=== PATIENT | male | born 1940 | race Caucasian/White ===

== ENCOUNTER 2016-12-26 14:51 | Inpatient (IN) | payer MEDICARE, OTHER ==
[~2016-12-26] VITALS: Ht 180.3 cm; Wt 68.0 kg
[2016-12-26 20:06] LABS: HEMOGLOBIN 19.1 gm/dl (14.0-17.5); RED BLOOD COUNT 6.13 M/UL (4.20-5.50); WHITE BLOOD COUNT 8.6 K/UL (4.5-11.0)
[2016-12-27] MEDS ORDERED: BYDUREON2 MG SQ (00:08)
[2016-12-27] MEDS ORDERED: NORVASC 5 MG TAB5 MG PO (00:09)
[2016-12-27] MEDS ORDERED: LANTUS100 UNIT/1 SQ (00:09)
[2016-12-27] MEDS ORDERED: METOPROLOL TART50 MG PO (00:10)
[2016-12-27] MEDS ORDERED: LORTAB 7.5-3251 EACH PO (00:10)
[2016-12-27] MEDS ORDERED: NITROGLYCERIN2.5 M1 PO (00:11)
[2016-12-27] MEDS ORDERED: LISINOPRIL20 MG PO (00:12)
[2016-12-27] MEDS ORDERED: ELIQUIS5 MG PO (00:12)
[2016-12-27 06:13] LABS: HEMOGLOBIN 17.8 gm/dl (14.0-17.5); RED BLOOD COUNT 5.77 M/UL (4.20-5.50); WHITE BLOOD COUNT 6.9 K/UL (4.5-11.0)
[2016-12-28 04:09] LABS: HEMOGLOBIN 17.1 gm/dl (14.0-17.5); RED BLOOD COUNT 5.61 M/UL (4.20-5.50); WHITE BLOOD COUNT 6.7 K/UL (4.5-11.0)
[2016-12-28] MEDS ORDERED: RANEXA500 MG PO (10:10)
[2016-12-28] MEDS ORDERED: TYLENOL 325MG325 MG PO (10:10)
[2017-05-13] MEDS ORDERED: LANTUS100 UNIT/1 SQ (20:34)
[2017-05-14] MEDS ORDERED: NITROGLYCERIN2.5 MG PO (12:34)
[2017-05-14] MEDS ORDERED: LANTUS100 UNIT/1 SQ (12:35)
[2017-05-22] MEDS ORDERED: LISINOPRIL20 MG PO (12:27)
== END 2016-12-28 09:58 | disposition home or self-care (01) | DRG 303 ==
LOC: ER1 14:51 → CCU 21:34 → ZEROF 21:34 → CCU 12-27 00:11 → PROG CARE 12-27 18:27
PROVIDERS: Emergency Medicine; Family Medicine; ADMIT Family Medicine
DX: I25.119 Atherosclerotic heart disease of native coronary artery with unspecified angina pectoris (principal); I13.0 Hypertensive heart and chronic kidney disease with heart failure and stage 1 through stage 4 chronic kidney disease, or unspecified chronic kidney disease; I50.22 Chronic systolic (congestive) heart failure; E86.0 Dehydration; E87.5 Hyperkalemia; E11.22 Type 2 diabetes mellitus with diabetic chronic kidney disease; N18.3 Chronic kidney disease, stage 3 (moderate); I25.5 Ischemic cardiomyopathy; I48.2 Chronic atrial fibrillation; E11.40 Type 2 diabetes mellitus with diabetic neuropathy, unspecified; J44.9 Chronic obstructive pulmonary disease, unspecified; E78.5 Hyperlipidemia, unspecified; R70.0 Elevated erythrocyte sedimentation rate; C44.602 Unspecified malignant neoplasm of skin of right upper limb, including shoulder; M51.36 Other intervertebral disc degeneration, lumbar region; L30.9 Dermatitis, unspecified; M19.90 Unspecified osteoarthritis, unspecified site; F32.9 Major depressive disorder, single episode, unspecified; F41.9 Anxiety disorder, unspecified; Z95.5 Presence of coronary angioplasty implant and graft; Z95.810 Presence of automatic (implantable) cardiac defibrillator; Z87.891 Personal history of nicotine dependence; Z72.3 Lack of physical exercise; Z79.01 Long term (current) use of anticoagulants; Z79.4 Long term (current) use of insulin; Z79.891 Long term (current) use of opiate analgesic; Z79.899 Other long term (current) drug therapy; Z88.8 Allergy status to other drugs, medicaments and biological substances; Z83.3 Family history of diabetes mellitus; Z82.49 Family history of ischemic heart disease and other diseases of the circulatory system
CPT/HCPCS: 36415; 70450; 71010; 80048; 80053; 80061; 82550; 82553; 82962; 83874; 84132; 84484; 85025; 85027; 85610; 85730; 93005; 96372; 96374; 96375; 97116; 99285; J0610; J1650; J1815; J1940; J7030

== ENCOUNTER 2016-12-28 17:12 | Inpatient (IN) | payer MEDICARE, OTHER ==
[~2016-12-28] VITALS: Ht 180.3 cm; Wt 80.5 kg
[~2016-12-28 17:12] MED LIST: BYDUREON2 MG SQ; ELIQUIS5 MG PO; LANTUS100 UNIT/1 SQ; LISINOPRIL20 MG PO; LORTAB 7.5-3251 EACH PO; METOPROLOL TART50 MG PO; NITROGLYCERIN2.5 M1 PO; NORVASC 5 MG TAB5 MG PO; RANEXA500 MG PO; TYLENOL 325MG325 MG PO
[2016-12-28 17:35] LABS: RED BLOOD COUNT 5.88 M/UL (4.20-5.50); WHITE BLOOD COUNT 7.4 K/UL (4.5-11.0)
[2016-12-29 07:28] LABS: HEMOGLOBIN 16.5 gm/dl (14.0-17.5); RED BLOOD COUNT 5.48 M/UL (4.20-5.50); WHITE BLOOD COUNT 6.8 K/UL (4.5-11.0)
[2016-12-30 04:34] LABS: HEMOGLOBIN 16.6 gm/dl (14.0-17.5); RED BLOOD COUNT 5.44 M/UL (4.20-5.50); WHITE BLOOD COUNT 7.6 K/UL (4.5-11.0)
[2016-12-31 04:25] LABS: HEMOGLOBIN 16.6 gm/dl (14.0-17.5); RED BLOOD COUNT 5.43 M/UL (4.20-5.50); WHITE BLOOD COUNT 7.1 K/UL (4.5-11.0)
[2017-01-01 04:17] LABS: HEMOGLOBIN 16.6 gm/dl (14.0-17.5); RED BLOOD COUNT 5.46 M/UL (4.20-5.50)
[2017-01-01 04:21] LABS: WHITE BLOOD COUNT 15.8 K/UL (4.5-11.0)
[2017-01-02 03:40] LABS: HEMOGLOBIN 17.9 gm/dl (14.0-17.5); RED BLOOD COUNT 5.83 M/UL (4.20-5.50); WHITE BLOOD COUNT 12.2 K/UL (4.5-11.0)
[2017-01-03 04:18] LABS: HEMOGLOBIN 18.1 gm/dl (14.0-17.5); RED BLOOD COUNT 5.89 M/UL (4.20-5.50)
[2017-05-13] MEDS ORDERED: LANTUS100 UNIT/1 SQ (20:34)
[2017-05-14] MEDS ORDERED: NITROGLYCERIN2.5 MG PO (12:34)
[2017-05-14] MEDS ORDERED: LANTUS100 UNIT/1 SQ (12:35)
[2017-05-22] MEDS ORDERED: LISINOPRIL20 MG PO (12:27)
== END 2017-01-04 13:01 | DRG 291 ==
LOC: ER1 17:12 → PROG CARE 12-29 00:30 → ER1 12-29 20:45 → MED SURG 4 01-03 17:33
PROVIDERS: Emergency Medicine; Family Medicine; ADMIT Internal Medicine
DX: I13.0 Hypertensive heart and chronic kidney disease with heart failure and stage 1 through stage 4 chronic kidney disease, or unspecified chronic kidney disease (principal); I50.23 Acute on chronic systolic (congestive) heart failure; J18.9 Pneumonia, unspecified organism; J96.21 Acute and chronic respiratory failure with hypoxia; N17.9 Acute kidney failure, unspecified; J44.0 Chronic obstructive pulmonary disease with (acute) lower respiratory infection; J44.1 Chronic obstructive pulmonary disease with (acute) exacerbation; I47.1 Supraventricular tachycardia; J98.11 Atelectasis; E11.22 Type 2 diabetes mellitus with diabetic chronic kidney disease; E11.65 Type 2 diabetes mellitus with hyperglycemia; N18.3 Chronic kidney disease, stage 3 (moderate); I42.0 Dilated cardiomyopathy; I25.5 Ischemic cardiomyopathy; E86.0 Dehydration; E11.40 Type 2 diabetes mellitus with diabetic neuropathy, unspecified; I25.10 Atherosclerotic heart disease of native coronary artery without angina pectoris; C44.602 Unspecified malignant neoplasm of skin of right upper limb, including shoulder; I48.0 Paroxysmal atrial fibrillation; I44.1 Atrioventricular block, second degree; E87.5 Hyperkalemia; D75.1 Secondary polycythemia; N40.1 Benign prostatic hyperplasia with lower urinary tract symptoms; R33.8 Other retention of urine; E78.5 Hyperlipidemia, unspecified; T38.0X5A Adverse effect of glucocorticoids and synthetic analogues, initial encounter; R74.8 Abnormal levels of other serum enzymes; M51.36 Other intervertebral disc degeneration, lumbar region; M19.90 Unspecified osteoarthritis, unspecified site; G89.29 Other chronic pain; L30.9 Dermatitis, unspecified; F41.9 Anxiety disorder, unspecified; Z95.5 Presence of coronary angioplasty implant and graft; Z95.810 Presence of automatic (implantable) cardiac defibrillator; Z87.891 Personal history of nicotine dependence; Z72.3 Lack of physical exercise; Z99.81 Dependence on supplemental oxygen; Z79.01 Long term (current) use of anticoagulants; Z79.1 Long term (current) use of non-steroidal anti-inflammatories (NSAID); Z79.4 Long term (current) use of insulin; Z79.891 Long term (current) use of opiate analgesic; Z79.899 Other long term (current) drug therapy; Z88.8 Allergy status to other drugs, medicaments and biological substances; Z83.3 Family history of diabetes mellitus; Z82.49 Family history of ischemic heart disease and other diseases of the circulatory system
CPT/HCPCS: ECHO; 36415; 36600; 71010; 71020; 80048; 80053; 80061; 80076; 81001; 82550; 82553; 82803; 82962; 83605; 83690; 83874; 83880; 84439; 84443; 84484; 85025; 85027; 85610; 85730; 87040; 87086; 93005; 93306; 94640; 94664; 96374; 96375; 96376; 97110; 97116; 97530; 99285; J1160; J1610; J1650; J1815; J1940; J1956; J2543; J2930; J7030; J7050; Q0177